=== PATIENT | male | born 1945 | race Caucasian/White ===

== ENCOUNTER 2018-10-30 23:02 | Emergency (ER) | payer MEDICARE ==
[~2018-10-30] VITALS: Ht 167.6 cm; Wt 57.0 kg
--- NOTE | 2018-10-31 00:28 | NUR ---
GUERITA BENAVIDES AT BEDSIDE FOR OCULAR EXAM
[2018-10-31 01:09] VITALS: BP 128/89
== END 2018-10-31 01:10 | disposition home or self-care (01) ==
LOC: ER 23:04
DX: Z01.00 Encounter for examination of eyes and vision without abnormal findings (principal); H43.392 Other vitreous opacities, left eye
CPT/HCPCS: 99284

== ENCOUNTER 2019-02-22 12:19 | Emergency (ER) | payer MEDICARE ==
[~2019-02-22] VITALS: Ht 167.6 cm; Wt 57.0 kg
[2019-02-22 13:07] LABS: BASOPHILS % (AUTO) 0.2 % (0-1); EOSINOPHILS % (AUTO) 0.3 % (0-6); HEMATOCRIT 47.3 % (42.0-52.0); HEMOGLOBIN 16.6 g/dl (14.0-17.9); LYMPHOCYTES # (AUTO) 0.7 X10'3 (1.1-4.8); LYMPHOCYTES % (AUTO) 15.7 % (21-51); MEAN CORPUSCULAR HEMOGLOBIN 34.2 PG (27.0-31.0); MEAN CORPUSCULAR HGB CONC 35.1 g/dL (33.0-36.5); MEAN CORPUSCULAR VOLUME 97.5 FL (78-98); MEAN PLATELET VOLUME 7.8 FL (7.4-10.4); MONOCYTES # (AUTO) 0.5 X10'3 (0-0.9); NEUTROPHILS # (AUTO) 3.4 X10'3 (1.8-7.7); NEUTROPHILS % (AUTO) 73.8 % (42-75); PLATELET COUNT 235 X10'3 (140-440); RED BLOOD COUNT 4.85 X10'6 (4.70-6.10); RED CELL DISTRIBUTION WIDTH 12.7 % (11.5-14.5); WHITE BLOOD COUNT 4.6 X10'3 (4.5-11.0)
[2019-02-22 13:24] LABS: ALANINE AMINOTRANSFERASE 29 U/L (12-78); ALBUMIN 4.3 G/DL (3.4-5.0); ALBUMIN/GLOBULIN RATIO 1.5 (1.1-1.5); ALKALINE PHOSPHATASE 124 IU/L (46-116); ANION GAP 10 (8-16); ASPARTATE AMINO TRANSFERASE 23 U/L (10-37); BILIRUBIN,TOTAL 1.1 MG/DL (0.1-1.0); BLOOD UREA NITROGEN 18 MG/DL (7-18); BUN/CREATININE RATIO 16.8 (5.4-32.0); CALCIUM 9.2 MG/DL (8.5-10.1); CHLORIDE 107 MMOL/L (99-107); CREATININE 1.07 MG/DL (0.60-1.10); GLUCOSE 106 MG/DL (70-104); POTASSIUM 3.9 MMOL/L (3.5-5.1); SODIUM 143 MMOL/L (135-145); TOTAL CARBON DIOXIDE 26.2 MMOL/L (24-32); TOTAL PROTEIN 7.1 G/DL (6.4-8.2); eGFR 67 ML/MIN
--- NOTE | 2019-02-22 13:36 | NUR ---
Patient resting in bed comfortable, no CP at this time. Patient on cardiac cath technician. MD at bedside.
[2019-02-22] MEDS ORDERED: aspirin 81mg tab.chew PO ONE (13:50)
[2019-02-22 13:58] VITALS: BP 144/97
[2019-02-22] MEDS ORDERED: PANT-47 PO (14:30)
[2019-02-22] MEDS ORDERED: NO HOME MEDS (14:56)
== END 2019-02-22 15:19 | disposition home or self-care (01) ==
LOC: ER 12:20
DX: R07.89 Other chest pain (principal); M25.512 Pain in left shoulder; E78.5 Hyperlipidemia, unspecified; Z88.0 Allergy status to penicillin; Z79.899 Other long term (current) drug therapy
CPT/HCPCS: 36415; 71045; 80053; 84484; 85025; 93005; 99284